=== PATIENT | male | born 1995 | race Caucasian/White ===

== ENCOUNTER 2018-04-21 17:54 | Emergency (ER) | payer OTHER ==
--- NOTE | 2018-04-21 19:00 | XRAY Report ---
Reason: Trauma Procedure Date: 04/21/2018 Accession Number: [id number] / [id number] Procedure: XR - Hand 3 View LT CPT Code: FULL RESULT: EXAM: LEFT HAND RADIOGRAPHY EXAM DATE: 04/21/2018 06:52 PM. CLINICAL HISTORY: Trauma. COMPARISON: None. TECHNIQUE: 3 views. FINDINGS: Bones: There is a comminuted and mildly displaced fracture of the proximal aspect first metacarpal without evidence of intra-articular extension. Mild angulation as well. No additional fracture. Joints: Normal. No subluxations. Soft Tissues: Soft tissue swelling. IMPRESSION: Mildly displaced and angulated first metacarpal fracture. RADIA
--- NOTE | 2018-04-21 19:32 | ED Physician Documentation ---
PD HPI UPPER EXT INJURY - Stated complaint Stated Complaint: HAND INJURY - Chief complaint Chief Complaint: Trauma Ext - History obtained from History obtained from: Patient - History of Present Illness Location: Left, Hand, Finger Type of injury: Blunt / blow (he punched at wall and struck thumb, with pain at base of thumb. Occured 6 days ago and still hurting with ROM.) Where injury occurred: Home Timing - onset: How many days ago (6) Timing - duration: Days (6) Timing - details: Abrupt onset, Still present Improved by: Rest Worsened by: Moving, Palpating Associated symptoms: Weakness, Swelling, Discolored (bruised). No: Numbness Similar symptoms before: Has not had sx before Recently seen: Not recently seen Review of Systems Skin: denies: Abrasion (s), Laceration (s) Neurologic: reports: Focal weakness (thumb movement limited due to pain and feels weak). denies: Numbness PD PAST MEDICAL HISTORY - Past Medical History Past Medical History: No - Past Surgical History Past Surgical History: No - Present Medications Home Medications: Ambulatory Orders Medication Instructions Recorded Confirmed HYDROcod/ACETAM 5/325 [[place] 5/325] 1 tab PO Q6H PRN #15 tablet 04/21/18 Naproxen [Naprosyn] 500 mg PO BID PRN #20 tablet 04/21/18 - Allergies Allergies/Adverse Reactions: Allergies Allergy/AdvReac Type Severity Reaction Status Date / Time No Known Drug Allergies Allergy Verified 04/21/18 18:15 - Social History Does the pt smoke?: No Smoking Status: Never smoker Does the pt drink ETOH?: No Does the pt have substance abuse?: No - Immunizations Immunizations are current?: Yes - POLST Patient has POLST: No PD ED PE NORMAL - Vitals Vital signs reviewed: Yes - General General: Alert and oriented X 3, No acute distress, Well developed/nourished - Derm Derm: Normal color, Warm and dry - Extremities Extremities: Other (left thumb base and MC area with tenderness and swelling, purple bruising color. Normal cap refill in nailbed. Normal sensation to touch/sharp. ) Results - Vitals Vitals: Oxygen O2 Source Room air - Rads (name of study) left thumb Radiology: Prelim report reviewed Procedures - Splint (location) thumb spica right Splint applied by: Tech Type of splint: Fiberglass, Thumb spica Other: Patient tolerated well, No complications, Neurovascular intact, Sling provided PD MEDICAL DECISION MAKING - ED course Complexity details: reviewed results, considered differential, d/w patient, d/w sales and leasing consultant (Dr. Cullen - who looked at images and gave impression of not needing reduction/surgery at this point. ) Departure - Departure Disposition: 01 Home, Self Care Clinical Impression: First metacarpal bone fracture Qualifiers: Encounter type: initial encounter Fracture type: closed Metacarpal location: shaft Fracture alignment: displaced Laterality: left Qualified Code(s): S62.242A - Displaced fracture of shaft of first metacarpal bone, left hand, initial encounter for closed fracture Condition: Stable Record reviewed to determine appropriate education?: Yes Instructions: ED Fx Hand Closed Follow-Up: [facility] [Provider Group] Prescriptions: HYDROcod/ACETAM 5/325 [[place] 5/325] 1 tab PO Q6H PRN #15 tablet PRN Reason: Pain Naproxen [Naprosyn] 500 mg PO BID PRN #20 tablet PRN Reason: Pain Comments: Keep the splint on to stabilize the fracture. Ice rest and elevate the hand often. Use a sling to help support it. Follow-up with orthopedics next week, call Tuesday for an appointment. The orthopedist on-call geronimo looked at the x-ray and thought it looked aligned well enough to to just need splinting and then casting without repair. They will likely re-x-ray it on follow-up to make sure he is maintaining position. This will need casting treatment for about 6 weeks. Use some anti-inflammatories 2-3 times a day and add pain medicine if needed. Discharge Date/Time: 04/21/18 20:29
[2018-04-21] MEDS ORDERED: IBUPROFEN 600 MG TABLET PO STA (19:41)
[2018-04-21] MEDS ORDERED: HYDROcod/ACETAM 5/325 MG TABLET PO STA (19:41)
[2018-04-21 20:29] VITALS: BP 110/72
== END 2018-04-21 20:29 | disposition home or self-care (01) ==
LOC: ED 17:54
DX: S62.242A Displaced fracture of shaft of first metacarpal bone, left hand, initial encounter for closed fracture (principal); W22.09XA Striking against other stationary object, initial encounter; Y92.009 Unspecified place in unspecified non-institutional (private) residence as the place of occurrence of the external cause
CPT/HCPCS: 29125; 73130; 99283; A9270

== ENCOUNTER 2018-05-02 11:42 | Day surgery (SDC) | payer OTHER ==
[2018-05-02] MEDS ORDERED: ceFAZolin 1 GM VIAL ONE (12:03)
[2018-05-02] MEDS ORDERED: LACTATED RINGERS 1,000 ML IV ONE (12:10)
[2018-05-02] MEDS ORDERED: BUPIVACAINE 0.25% PF 30 ML VIAL ONE (12:41)
--- NOTE | 2018-05-02 12:57 | ANESTHESIA ---
Pre-Anesthesia VS, & Labs - Diagnosis Left hand first metacarpal fracture - Procedure Left hand percutaneus pinning closed reduction Vital Signs: Temp Pulse Resp BP Pulse Ox 36.8 C 90 18 128/89 H 100 05/02/18 12:13 05/02/18 12:13 05/02/18 12:13 05/02/18 12:13 05/02/18 12:13 Height 5 ft 11 in Weight (kg) 70.3 kg Body Mass Index 21.6 - NPO >8 hours Home Medications and Allergies Allergies/Adverse Reactions: Allergies Allergy/AdvReac Type Severity Reaction Status Date / Time No Known Drug Allergies Allergy Verified 04/21/18 18:15 Anes History & Medical History - Anesthetic History Family history of Anesthesia Complications: Denies Family history of Malignant Hyperthermia: Denies - Medical History Cardiovascular: reports: None Pulmonary: reports: None Gastrointestinal: reports: None Urinary: reports: None Neuro: reports: None Musculoskeletal: reports: None Endocrine/Autoimmune: reports: None Blood Disorders: reports: None Skin: reports: None Smoking Status: Former smoker (quit 6 months ago) Psychosocial: reports: No issues indicated Exam General: Alert, Oriented x3, Cooperative, No acute distress Dental: WNL Mouth Openin Fingerbreadth Neck Mobility: Normal Mallampati classification: II Thyromental Distance: 4-6 cm Respiratory: Lungs clear, Normal breath sounds, No respiratory distress, No accessory muscle use Cardiovascular: Regular rate, Normal S1, Normal S2, No murmurs Mental/Cognitive Status: Alert/Oriented X3, Normal for patient Cognitive Status: Within normal limits Plan Anesthesia Type: General Consent for Procedure(s) Verified and Reviewed: Yes Code Status: Attempt Resuscitation ASA classification: 1-Healthy patient Is this case an emergency?: No
[2018-05-02] MEDS ORDERED: BUPIVACAINE 0.25% PF 30 ML VIAL SUBQ ONE ×2 (13:27)
[2018-05-02] MEDS ORDERED: HYDROcod/ACETAM 5/325 MG TABLET PO PRN (13:55)
[2018-05-02] MEDS ORDERED: PROPOFOL 200 MG/20 ML VIAL IVP ONE (13:58)
[2018-05-02 14:25] VITALS: BP 120/80
[2018-05-02] MEDS ORDERED: HYDROcod/ACETAM 5/325 MG TABLET ONE (14:49)
--- NOTE | 2018-05-02 16:00 | OPERATIVE REPORT ---
DATE OF SERVICE: 05/02/2018 Physician: Yue Weeks MD PREOPERATIVE DIAGNOSIS: Left thumb displaced first metacarpal shaft fracture. POSTOPERATIVE DIAGNOSIS: Left thumb displaced first metacarpal shaft fracture. PROCEDURE PERFORMED: Closed reduction and percutaneous pinning of left thumb first metacarpal fractu re. OPERATING SURGEON: Yue Weeks MD ANESTHESIA: General. INDICATIONS FOR SURGERY: The patient is a 22-year-old male who suffered a fracture of his left thumb first metacarpal when he struck a wall. This fracture was oblique and unstable and shortened and fo r this reason, I recommend that he undergo corrective closed reduction and percutaneous pinning. DESCRIPTION OF OPERATIVE PROCEDURE: The patient was taken to the operating room, given a general ane sthetic. He was supine on the OR table. Tourniquet was placed on his upper arm. His forearm and landa nd were sterilely prepped and draped in standard fashion. After surgical timeout, the patient's thum b was gently manipulated with a mini C-arm imaging. Once the fracture was well reduced, percutaneous 0.045 K-wires 2 in number were driven obliquely into the carpus from the first metacarpal, and this gave very good fixation and alignment of the fracture and stability. The pins were cut off outside t he skin and a [place] ball was placed on 1 and the other was bent over the top of the [place] ball so w ould not catch on the splint or cast. There was very little bleeding. A soft dressing and a splint were applied. The patient was taken to recovery room in stable condition. ESTIMATED BLOOD LOSS: Minimal. COMPLICATIONS: None. SPONGE AND NEEDLE COUNTS: Correct. TD: 05/02/2018 14:18
== END 2018-05-02 11:43 | disposition home or self-care (01) ==
LOC: SDS 11:42
PROVIDERS: ATTEND Orthopaedic Surgery
PROC: 0PSQ34Z Reposition Left Metacarpal with Internal Fixation Device, Percutaneous Approach (ICD-10-PCS; principal; 2018-05-02 12:30)
DX: S62.242A Displaced fracture of shaft of first metacarpal bone, left hand, initial encounter for closed fracture (principal); Z87.891 Personal history of nicotine dependence
CPT/HCPCS: 26608; A9270; C1713; J7120

== ENCOUNTER 2018-05-04 08:38 | Emergency (ER) | payer OTHER ==
[2018-05-04 09:13] LABS: BASOPHILS % (AUTO) 0.7 %; EOSINOPHILS # (AUTO) 0.2 10^3/uL (0.0-0.7); EOSINOPHILS % (AUTO) 2.6 %; HGB - HEMOGLOBIN 15.4 g/dL (14.0-18.0); LYMPHOCYTES % (AUTO) 32.8 %; MEAN CORPUSCULAR HEMOGLOBIN 30.8 pg (27.0-31.0); MEAN CORPUSCULAR HGB CONC 34.8 g/dL (32.0-36.0); MEAN CORPUSCULAR VOLUME 88.5 fL (80.0-94.0); MEAN PLATELET VOLUME 8.3 fL (7.4-11.4); MONOCYTES # (AUTO) 0.3 10^3/uL (0.0-1.0); MONOCYTES % (AUTO) 5.3 %; NEUTROPHILS # (AUTO) 3.5 10^3/uL (1.5-6.6); NEUTROPHILS % (AUTO) 58.6 %; PLT - PLATELET COUNT 169 10^3/uL (130-450); RED CELL DISTRIBUTION WIDTH 13.3 % (12.0-15.0)
[2018-05-04 09:28] LABS: ALBUMIN 4.7 g/dL (3.2-5.5); ALBUMIN/GLOBULIN RATIO 1.7 (1.0-2.2); BILIRUBIN,TOTAL 0.6 mg/dL (0.2-1.0); CALCIUM 9.5 mg/dL (8.5-10.3); CREATININE 1.1 mg/dL (0.6-1.2); TOTAL PROTEIN 7.4 g/dL (6.7-8.2)
--- NOTE | 2018-05-04 09:29 | ED Physician Documentation ---
PD HPI GI BLEED - Stated complaint Stated Complaint: VOMITING BLOOD/POST OP 2 DAYS - Chief complaint Chief Complaint: Abd Pain - History obtained from History obtained from: Patient, Family - History of Present Illness Timing - onset: Enter time (809), Today Timing - duration: Minutes Timing - details: Abrupt onset, Now resolved Associated symptoms: Hematemesis Contributing factors: Other (taking hydrocodone for hand pain) Improved by: Laying still Similar symptoms before: Has not had sx before Recently seen: Surgery - Additional information Additional information: 22-year-old male has had recent surgery on his left hand for a thumb fracture and he has been taking some hydrocodone. This morning he got up had some oatmeal took his hydrocodone and then vomited and in the vomit he noted some blood. He denies any coffee-ground emesis and he denies any large volume of blood. He is now symptom-free he has no longer nauseous and denies any abdominal pain. Review of Systems Constitutional: denies: Fever Nose: denies: Congestion Throat: denies: Sore throat Cardiac: denies: Chest pain / pressure Respiratory: denies: Dyspnea, Cough GI: reports: Nausea, Vomiting, Hematemesis. denies: Abdominal Pain, Co nstipation, Diarrhea, Bloody / black stool : denies: Dysuria, Frequency PD PAST MEDICAL HISTORY - Past Medical History Cardiovascular: None Respiratory: None Neuro: None Endocrine/Autoimmune: None GI: Other : None HEENT: None Psych: None Musculoskeletal: None Derm: None Other Past Medical History: IBS - Past Surgical History Past Surgical History: No Ortho: Other - Present Medications Home Medications: Ambulatory Orders Medication Instructions Recorded Confirmed HYDROcod/ACETAM 5/325 [[place] 5/325] 1 tab PO Q6H PRN #15 tablet 04/21/18 1 07/01/17 RX: Naproxen [Naprosyn] 500 mg PO BID PRN #20 tablet 04/21/18 05/01/18 - Allergies Allergies/Adverse Reactions: Allergies Allergy/AdvReac Type Severity Reaction Status Date / Time No Known Drug Allergies Allergy Verified 05/04/18 08:45 - Social History Does the pt smoke?: No Smoking Status: Former smoker Does the pt drink ETOH?: No Does the pt have substance abuse?: Yes Substance Use and Type: Marijuana - Immunizations Immunizations are current?: Yes - POLST Patient has POLST: No PD ED PE NORMAL - Vitals Vital signs reviewed: Yes (tachy and hyperensive ) - General General: Alert and oriented X 3, No acute distress, Well developed/nourished - HEENT HEENT: Atraumatic, PERRL, EOMI - Neck Neck: Supple, no meningeal sign - Cardiac Cardiac: RRR, No murmur - Respiratory Respiratory: No respiratory distress, Clear bilaterally - Abdomen Abdomen: Soft, Non tender - Back Back: No CVA TTP, No spinal TTP - Derm Derm: Normal color, Warm and dry, No rash - Extremities Extremities: No deformity, Other (The left hand is in a splint with dressing in place. 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, No motor deficit, No sensory deficit, Normal speech Eye Opening: Spontaneous Motor: Obeys Commands Verbal: Oriented GCS Score: 15 - Psych Psych: Normal mood, Normal affect Results - Vitals Vitals: Vital Signs - 24 hr 05/04/18 05/04/18 05/04/18 08:42 09:11 10:54 Temperature 36.2 C L 37 C 36.4 C L Heart Rate 113 H 102 H 80 Respiratory 16 24 17 Rate Blood Pressure 128/87 H 120/84 H 111/77 O2 Saturation 100 100 100 Oxygen O2 Source Room air - Labs Labs: Laboratory Tests 05/04/18 05/04/18 05/04/18 09:10 09:10 09:35 WBC 6.0 RBC 5.00 Hgb 15.4 Hct 44.2 MCV 88.5 MCH 30.8 MCHC 34.8 RDW 13.3 Plt Count 169 MPV 8.3 Neut # (Auto) 3.5 Lymph # (Auto) 2.0 [place] # (Auto) 0.3 Eos # (Auto) 0.2 Baso # (Auto) 0.0 Absolute Nucleated RBC 0.00 Nucleated RBC % 0.1 Sodium 137 Potassium 3.2 L Chloride 99 L Carbon Dioxide 29 Anion Gap 9.0 BUN 20 Creatinine 1.1 Estimated GFR (MDRD) 82 L Glucose 110 H Calcium 9.5 Total Bilirubin 0.6 AST 31 ALT 34 Alkaline Phosphatase 50 Total Protein 7.4 Albumin 4.7 Globulin 2.7 Albumin/Globulin Ratio 1.7 Lipase 78 H Urine Color YELLOW Urine Clarity CLOUDY Urine pH 8.5 H Ur Specific [place] 1.015 Urine Protein NEGATIVE Urine Glucose (UA) NEGATIVE Urine Ketones NEGATIVE Urine Occult Blood NEGATIVE Urine Nitrite NEGATIVE Urine Bilirubin NEGATIVE Urine Urobilinogen 0.2 (NORMAL) Ur Leukocyte Esterase NEGATIVE Urine RBC 0-5 Urine WBC 0-3 Ur Squamous Epith Cells NONE SEEN Amorphous Sediment Moderate Urine Bacteria Few Ur Microscopic Review INDICATED Urine Culture Comments NOT INDICATED Blood Type Antibody Screen 05/04/18 09:51 WBC RBC Hgb Hct MCV MCH MCHC RDW Plt Count MPV Neut # (Auto) Lymph # (Auto) [place] # (Auto) Eos # (Auto) Baso # (Auto) Absolute Nucleated RBC Nucleated RBC % Sodium Potassium Chloride Carbon Dioxide Anion Gap BUN Creatinine Estimated GFR (MDRD) Glucose Calcium Total Bilirubin AST ALT Alkaline Phosphatase Total Protein Albumin Globulin Albumin/Globulin Ratio Lipase Urine Color Urine Clarity Urine pH Ur Specific [place] Urine Protein Urine Glucose (UA) Urine Ketones Urine Occult Blood Urine Nitrite Urine Bilirubin Urine Urobilinogen Ur Leukocyte Esterase Urine RBC Urine WBC Ur Squamous Epith Cells Amorphous Sediment Urine Bacteria Ur Microscopic Review Urine Culture Comments Blood Type A POSITIVE Antibody Screen NEGATIVE PD MEDICAL DECISION MAKING - ED course Complexity details: reviewed results, re-evaluated patient, considered differential, d/w patient, d/w family ED course: 22-year-old male who is recently had surgery on a metacarpal 2 days ago and this morning he took a dose of pain medication and shortly after he became nauseous and vomited. He noticed blood speckled in the vomit and he became concerned and has come to the hospital. He states that he feels normal now, no longer nauseous and he has not had any further nausea, vomiting or blood. He states that he never vomited anything that looked like coffee grounds and there was not any large volume perhaps a teaspoon or half a teaspoon of blood at the most. His blood counts are normal and he is reassured. Departure - Departure Disposition: 01 Home, Self Care Clinical Impression: Upper GI bleed Condition: Stable Instructions: ED Bleed UGI Stable Follow-Up: [facility] [Provider Group] Comments: Today your blood counts are stable and no further bleeding has occurred. We recommend you take some Pepcid AC for about 1 week. This is available [id number]. Discharge Date/Time: 05/04/18 11:02
[2018-05-04 09:46] LABS: BILIRUBIN,URINE NEGATIVE (NEGATIVE); GLUCOSE, URINE (UA) NEGATIVE (NEGATIVE); KETONES,URINE (UA) NEGATIVE (NEGATIVE); LEUKOCYTE ESTERASE, URINE NEGATIVE (NEGATIVE); NITRITE,URINE NEGATIVE (NEGATIVE); OCCULT BLOOD,URINE NEGATIVE (NEGATIVE); PH,URINE 8.5 PH (5.0-7.5); PROTEIN,URINE NEGATIVE (NEGATIVE); UROBILINOGEN,URINE 0.2 (NORMAL) E.U./dL (NORMAL)
[2018-05-04 09:48] LABS: CLARITY,URINE CLOUDY (CLEAR)
[2018-05-04 09:54] LABS: BACTERIA,URINE Few /HPF (None Seen); RBC,URINE 0-5 /HPF (0-5); SQUAMOUS EPITHELIAL CELL,UR NONE SEEN (<= Few)
[2018-05-04 09:55] LABS: AMORPHOUS SEDIMENT,UR Moderate /LPF
[2018-05-04] MEDS: POTASSIUM BICARB 25 MEQ TABLET PO STA (10:08)
[2018-05-04 10:56] VITALS: BP 111/77
== END 2018-05-04 11:02 | disposition home or self-care (01) ==
LOC: ED 08:38
DX: K92.2 Gastrointestinal hemorrhage, unspecified (principal); Z87.891 Personal history of nicotine dependence
CPT/HCPCS: 36415; 80053; 81001; 81003; 83690; 85025; 86850; 86900; 86901; 87086; 99283